=== PATIENT | female | born 1980 | race Caucasian/White ===

== ENCOUNTER 2022-01-07 15:39 | Emergency (ER) | payer OTHER ==
[~2022-01-07] VITALS: Ht 170.2 cm; Wt 68.0 kg
[2022-01-07 15:41] VITALS: BP 146/87
[2022-01-07 16:09] LABS: BASOPHILS # (AUTO) 0.1 K/uL (0.00-0.22); BASOPHILS % (AUTO) 1.5 % (0.0-2.0); EOSINOPHILS # (AUTO) 0.2 K/uL (0-0.4); EOSINOPHILS % (AUTO) 3.4 % (0.0-4.0); HEMATOCRIT 33.3 % (36-48); HEMOGLOBIN 10.5 g/dL (12.0-16.0); LYMPHOCYTES # (AUTO) 1.5 K/uL (2.5-16.5); LYMPHOCYTES % (AUTO) 23.2 % (20.5-51.1); MEAN CORPUSCULAR HEMOGLOBIN 23 pg (27-31); MEAN CORPUSCULAR HGB CONC 32 g/dL (33-37); MEAN CORPUSCULAR VOLUME 74.3 fL (80-94); MONOCYTES # (AUTO) 0.6 K/uL (0.8-1.0); MONOCYTES % (AUTO) 9.9 % (1.7-9.3); NEUTROPHILS # (AUTO) 4.1 K/uL (1.8-7.7); PLATELET COUNT (AUTO) 260 K/uL (140-450); RED BLOOD CELL COUNT(AUTO) 4.49 MIL/uL (4.20-5.40); RED CELL DISTRIBUTION WIDTH 18.7 % (11.6-13.7); WHITE BLOOD COUNT (AUTO) 6.6 K/uL (4.8-10.8)
[2022-01-07 16:24] LABS: ANION GAP 14.7 (8-16); ASPARTATE AMINOTRANSFERASE 31 U/L (15-37); CARBON DIOXIDE 25.6 mmol/L (21-32); CHLORIDE 102 mmol/L (98-107); CREATININE 0.8 mg/dL (0.6-1.3); GFR ARICAN-AMERICAN 102 mL/min (>90); GLUCOSE 111 mg/dL (74-106); POTASSIUM 3.3 mmol/L (3.5-5.1); SODIUM SERUM 139 mmol/L (136-145); TOTAL BILIRUBIN 0.5 mg/dL (0.0-1.0); UREA NITROGEN, BLOOD 9 mg/dL (7-18)
--- NOTE | 2022-01-07 16:30 | NUR ---
41YO FEMALE PT BIBA FROM UNKNOWN HOME ON 5150 HOLD. PER [facility], PT WAS FOUND TRYING TO BREAK INTO HOME AND SWINGING WOODEN STICK ON DAUGHTER. UPON ARRIVAL , PT COOPERATIVE AND AAOX3 TO NAME, PLACE AND TIME. PT UNABLE TO RECALL "WHY SHE WAS BROUGHT TO ER ". STATES BEING ARGUING WITH DAUGHTER AND MOTHER OVER NOT BEING TOLD ABOUT SONS LOCATION . DENIES SI. LATER THEN BEING TOLD TO "GET ON GURNEY". C/O BETY KNEE PAIN , NO VISIBLE INJURY NOTED. DENIES N/V/D, CHEST PAIN OR SOB. PT IN VIEW, BED AT LOWEST POSITION , BED RAILS UPX2. ROOM STRIPPED OF POTENTIAL HARMFUL ITEMS. PB GIVEN TO SECURITY HX: SCHIZO, DM, HTN NKA
[2022-01-07 16:33] LABS: ACETAMINOPHEN < 0.5 ug/ml (10-30); SALICYLATE < 2.8 mg/dL (2.8-20.0)
[2022-01-07] MEDS ORDERED: POTASSIUM CHLORIDE 20% 40 MEQ/15 ML UDC PO ONE (16:40)
[2022-01-07] MEDS ORDERED: NACL 0.9% 1,000 ML IV ONE (16:40)
[2022-01-07 17:47] LABS: APPEARANCE,URINE CLEAR (CLEAR); BILIRUBIN,URINE NEGATIVE (NEGATIVE); BLOOD, URINE NEGATIVE (NEGATIVE); COLOR,URINE YELLOW (YELLOW); LEUKOCYTE ESTERASE ,URINE NEGATIVE (NEGATIVE); NITRITE, URINE NEGATIVE (NEGATIVE); PH,URINE 6.5 (5.0-9.0); UGLUCOSE NEGATIVE (NEGATIVE)
--- NOTE | 2022-01-07 18:00 | NUR ---
pt provided with dinner. pt awake and eating in bed
[2022-01-07 18:38] LABS: BARBITURATE, URINE NEGATIVE ng/ml (NEG <=200); BENZODIAZEPINE, URINE NEGATIVE ng/mL (NEG <=200); CANNABINOID, URINE NEGATIVE ng/mL (NEG <=50); COCAINE, URINE NEGATIVE ng/mL (NEG <=300); OPIATE, URINE NEGATIVE ng/mL (NEG <=2000); PHENCYCLIDINE SCREEN,URINE NEGATIVE ng/mL (NEG <=25)
--- NOTE | 2022-01-07 19:15 | NUR ---
PT MEDICALLY CLEARED BY DR NICOLAS
--- NOTE | 2022-01-07 19:20 | NUR ---
REPORT GIVEN TO BECK KENNY. ALL QUESTIONS ANSWERED. TRANSFER OF CARE AT THIS TIME
--- NOTE | 2022-01-07 19:22 | NUR ---
RECEIVED ENDORSEMENT FROM [employer] (JADEN URBINA)
--- NOTE | 2022-01-07 20:01 | NUR ---
PATIENT UP TO THE BATHROOM
--- NOTE | 2022-01-07 21:07 | NUR ---
PT BEING EVALUATED BY TELEPSYCH, DR PERALTA AT THIS TIME
--- NOTE | 2022-01-08 02:34 | NUR ---
PATIENT UP TO BATHROOM
--- NOTE | 2022-01-08 04:48 | NUR ---
Patient appears to be resting in bed. Vital Signs within normal limits. Respirations even and unlabored.
--- NOTE | 2022-01-08 08:00 | NUR ---
pt awake and eating breakfast in bed . in view, bed at lowest position, bed rail up x2.
[2022-01-08] MEDS ORDERED: CRUSHER, PILL MC ONE (10:09)
[2022-01-08] MEDS: risperiDONE 1 MG TAB PO SCH ×2 (10:12→21:18)
--- NOTE | 2022-01-08 11:28 | NUR ---
pt ambulated to restroom
--- NOTE | 2022-01-08 11:36 | NUR ---
pt ambulated back to room
--- NOTE | 2022-01-08 11:50 | NUR ---
pt provided with lunch. pt in view, awake and eating in bed
--- NOTE | 2022-01-08 16:48 | NUR ---
Note elizabethone in [facility] - 01/08/22 at 1652 by PHSCMATILIO Packet faxed to the following facilities [facility] [place] Addendum: 01/08/22 at 1651 by PHSCMATILIO Amendment bouchra in [facility] - 01/08/22 at 1652 by PHSCMATILIO [facility]
--- NOTE | 2022-01-08 16:52 | NUR ---
Fax to [facility]
--- NOTE | 2022-01-08 18:00 | NUR ---
pt provided with dinner. pt awake and eating in bed
--- NOTE | 2022-01-08 19:12 | NUR ---
REPORT GIVEN TO BEV STANLEY. ALL QUESTIONS ANSWERED. TRANSFER OF CARE AT THIS TIME
--- NOTE | 2022-01-08 19:38 | NUR ---
PENDING TRANSFER OUT. FAXES SENT OUT TO [facility]
--- NOTE | 2022-01-08 20:26 | NUR ---
PT IS ON A 5150 HOLD . A&OX4 RESP EVEN AND UNLABORED. NO DISTRESS NOTED. PT DEMO HAS BEEN FAXED OUT TO [facility] FOR PLACEMENT. PT IS A CALM AND SITTING UP QUIETLY. HOB ELEVATED. BED AT ITS LOWEST POSITION. NKDA DM MS
--- NOTE | 2022-01-08 21:01 | NUR ---
Provided food and juice as request.
--- NOTE | 2022-01-08 22:36 | NUR ---
Dr. Newton examining patient.
--- NOTE | 2022-01-09 02:38 | NUR ---
PT IS SLEEPING AND IN VIEW. RESP EVEN AND UNLABORED. BED AT LOWEST POSITION SIDE RAILS UP X2. PENDING TRANSFER OUT
--- NOTE | 2022-01-09 07:10 | NUR ---
PT SLEEPING RESP EVEN AND UNLABORED. NO DISTRESS NOTED. PENDING ACCEPTANCE FOR TRANSFER. PT IN VIEW BED AT LOWEST POSITION. SIDE RAILS UP X2
--- NOTE | 2022-01-09 07:30 | NUR ---
REPORT RECEIVED FROM BEV STANLEY. ASSUMED CARE AT THIS TIME
--- NOTE | 2022-01-09 07:35 | NUR ---
pt in view and sleeping supine position. respirations even and unlabored. bed at lowest position, bed rails upx2.
--- NOTE | 2022-01-09 08:00 | NUR ---
pt provided w/ breakfast. pt awake and eating in bed
--- NOTE | 2022-01-09 09:02 | NUR ---
PER CALLED FOR RE-EVALUATION;PAGED BY EXCHANGE
[2022-01-09] MEDS: risperiDONE 1 MG TAB PO SCH (09:24)
--- NOTE | 2022-01-09 10:02 | NUR ---
pt swabbed for covid(tej). walked and handed to lab
--- NOTE | 2022-01-09 10:39 | NUR ---
pt requested to speak with daughter STACEY. daughter contacted and linux consultant w/ pt
--- NOTE | 2022-01-09 10:44 | NUR ---
PT DAUGHTER CONTACT [facility] [phone]
--- NOTE | 2022-01-09 11:47 | NUR ---
pt provided with lunch. pt awake and eating in bed
--- NOTE | 2022-01-09 12:10 | NUR ---
PT ACCEPTED TO [facility] MAR[facility] Huang- [facility] [place] [phone] ETA FOR [place] [phone]
[2022-01-09 13:54] VITALS: BP 113/58
--- NOTE | 2022-01-09 13:54 | NUR ---
[facility] CONTACTED AND MADE AWARE OF PT [place] REPORT GIVEN TO BRETT KENNY
--- NOTE | 2022-01-09 13:58 | NUR ---
Patient to be transferred to [facility]. . Receiving facility has accepting physician and available space. ER physician has signed transfer form. Patient or responsible democrat has agreed to transfer and signed form. Patient belongings inventoried and will be sent with patient. Report called to BRETT KENNY at receiving facility. [facility] ambulance service has been called for transfer. ETA is NOW
--- NOTE | 2022-01-09 13:59 | NUR ---
The patient's care was reviewed and supervised by Richa Morley RN.
[2022-01-09] MEDS ORDERED: risperiDONE 1 MG TAB PO SCH (21:00)
== END 2022-01-09 13:54 ==
LOC: MED 15:39
DX: R45.850 Homicidal ideations (principal); Z20.822 Contact with and (suspected) exposure to COVID-19; F20.9 Schizophrenia, unspecified; E87.6 Hypokalemia; F15.10 Other stimulant abuse, uncomplicated
CPT/HCPCS: 36415; 80053; 80305; 81003; 85025; 87426; 87635; 93005; 96360; 99285; C9803; G0480; G0482

== ENCOUNTER 2022-04-22 20:38 | Emergency (ER) | payer OTHER ==
[~2022-04-22] VITALS: Ht 170.2 cm; Wt 66.8 kg
[2022-04-22 20:40] VITALS: BP 157/96
--- NOTE | 2022-04-22 20:40 | NUR ---
PT DAJUAN ALLEN, TAKEN TO LOBBY
--- NOTE | 2022-04-22 23:10 | NUR ---
PT TAKEN TO CT
--- NOTE | 2022-04-22 23:39 | NUR ---
Dr. Ruvalcaba examining patient.
[2022-04-23] MEDS ORDERED: IBUP-2213 PO (00:03)
[2022-04-23] MEDS ORDERED: SULF-59 PO (00:03)
[2022-04-23 00:07] VITALS: BP 155/89
--- NOTE | 2022-04-23 00:11 | NUR ---
Patient discharged with v/s stable. Written and verbal after care instructions given and explained. Patient alert, oriented and verbalized understanding of instructions. Ambulatory with steady gait. All questions addressed prior to discharge. ID band removed. Patient advised to follow up with PMD. Rx of Ibuprofen and Bactrim given. Patient educated on indication of medication including possible reaction and side effects. Opportunity to ask questions provided and answered.
== END 2022-04-23 00:11 | disposition home or self-care (01) ==
LOC: MED 20:38
DX: H00.031 Abscess of right upper eyelid (principal); J45.909 Unspecified asthma, uncomplicated
CPT/HCPCS: 70450; 99284

== ENCOUNTER 2023-01-12 17:13 | Emergency (ER) | payer SELFPAY ==
[~2023-01-12] VITALS: Ht 170.2 cm; Wt 68.9 kg
[~2023-01-12 17:13] MED LIST: IBUP-2213 PO; SULF-59 PO
[2023-01-12 17:45] VITALS: BP 119/96; PULSE 95; RESP 18; TEMP 98; O2SAT 99
[2023-01-12] MEDS ORDERED: HYD1C TP (19:08)
== END 2023-01-12 19:40 | disposition home or self-care (01) ==
LOC: MED 17:13
DX: R20.2 Paresthesia of skin (principal); J45.909 Unspecified asthma, uncomplicated; F20.9 Schizophrenia, unspecified; Z79.899 Other long term (current) drug therapy
CPT/HCPCS: 99281